=== PATIENT | male | born 1995 | race Caucasian/White ===

== ENCOUNTER 2021-05-19 13:19 | Emergency (ER) | payer OTHER ==
[~2021-05-19] VITALS: Ht 180.3 cm; Wt 95.0 kg
[2021-05-19 13:53] VITALS: BP 134/87
[2021-05-19] MEDS ORDERED: CIPR10DR LEFT EAR (14:47)
== END 2021-05-19 15:30 | disposition home or self-care (01) ==
LOC: ER 13:20
DX: H66.92 Otitis media, unspecified, left ear (principal); H91.92 Unspecified hearing loss, left ear; Z79.2 Long term (current) use of antibiotics
CPT/HCPCS: 99283

== ENCOUNTER 2021-05-26 15:32 | Emergency (ER) | payer OTHER ==
[~2021-05-26] VITALS: Ht 180.3 cm; Wt 95.0 kg
[~2021-05-26 15:32] MED LIST: CIPR10DR LEFT EAR
[2021-05-26 17:10] LABS: BASOPHILS % (AUTO) 0.2 % (0-1); EOSINOPHILS # (AUTO) 0.6 X10'3 (0-0.9); EOSINOPHILS % (AUTO) 5.7 % (0-6); HEMATOCRIT 43.9 % (42.0-52.0); HEMOGLOBIN 15.2 g/dl (14.0-17.9); LYMPHOCYTES # (AUTO) 2.2 X10'3 (1.1-4.8); LYMPHOCYTES % (AUTO) 22.6 % (21-51); MEAN CORPUSCULAR HEMOGLOBIN 30.9 PG (27.0-31.0); MEAN CORPUSCULAR HGB CONC 34.6 g/dL (33.0-36.5); MEAN CORPUSCULAR VOLUME 89.3 FL (78-98); MEAN PLATELET VOLUME 6.7 FL (7.4-10.4); MONOCYTES # (AUTO) 0.6 X10'3 (0-0.9); MONOCYTES % (AUTO) 6.3 % (2-12); NEUTROPHILS # (AUTO) 6.5 X10'3 (1.8-7.7); NEUTROPHILS % (AUTO) 65.2 % (42-75); PLATELET COUNT 209 X10'3 (140-440); RED BLOOD COUNT 4.92 X10'6 (4.70-6.10); RED CELL DISTRIBUTION WIDTH 12.4 % (11.5-14.5); WHITE BLOOD COUNT 9.9 X10'3 (4.5-11.0)
[2021-05-26 17:25] LABS: ALANINE AMINOTRANSFERASE 23 U/L (12-78); ALBUMIN 3.8 G/DL (3.4-5.0); ALKALINE PHOSPHATASE 56 IU/L (46-116); ANION GAP 11 (8-16); ASPARTATE AMINO TRANSFERASE 15 U/L (10-37); BILIRUBIN,TOTAL 0.5 MG/DL (0.1-1.0); BLOOD UREA NITROGEN 12 MG/DL (7-18); BUN/CREATININE RATIO 14.8 (5.4-32.0); CALCIUM 8.7 MG/DL (8.5-10.1); CHLORIDE 105 MMOL/L (99-107); CREATININE 0.81 MG/DL (0.60-1.10); GLUCOSE 96 MG/DL (70-104); SODIUM 143 MMOL/L (135-145); TOTAL CARBON DIOXIDE 26.6 MMOL/L (24-32); TOTAL PROTEIN 7.8 G/DL (6.4-8.2); eGFR > 90 ML/MIN
[2021-05-26] MEDS ORDERED: ciprofloxacin 250mg tablet PO SCH (17:35)
[2021-05-26] MEDS ORDERED: ciprofloxacin 250mg tablet PO ONE (17:35)
[2021-05-26] MEDS ORDERED: iohexol 300mg/ml 100ml inj. ONE (17:43)
[2021-05-26] MEDS ORDERED: ampicillin/sulbac 3gm/NS 100ml 100 ML IV SCH (19:25)
[2021-05-26] MEDS ORDERED: ampicillin/sulbac 3gm/NS 100ml 100 ML IV ONE (19:29)
[2021-05-26] MEDS ORDERED: NO HOME MEDS (21:08)
[2021-05-26] MEDS ORDERED: normal saline 1000ml 1,000 ML IV SCH (21:35)
[2021-05-27] MEDS ORDERED: ampicillin/sulbac 3gm/NS 100ml 100 ML IV SCH (02:00)
[2021-05-27 02:32] VITALS: BP 104/59
[2021-05-27] MEDS ORDERED: AMOX-580 PO (02:50)
[2021-05-27] MEDS ORDERED: HYDR-3965 PO (02:50)
== END 2021-05-27 03:20 | disposition home or self-care (01) ==
LOC: ER 15:33
DX: H60.502 Unspecified acute noninfective otitis externa, left ear (principal); Z20.822 Contact with and (suspected) exposure to COVID-19; H60.02 Abscess of left external ear; Z79.2 Long term (current) use of antibiotics
CPT/HCPCS: 36415; 69020; 70487; 80053; 85025; 87070; 87077; 87186; 87635; 96361; 96365; 99285; C9803; J0295; J7030; Q9967; 10060